=== PATIENT | female | born 1990 | race Caucasian/White ===

== ENCOUNTER 2016-03-18 04:37 | Emergency (ER) | payer BC ==
[~2016-03-18] VITALS: Ht 157.5 cm; Wt 63.6 kg
[2016-03-18 04:40] VITALS: TEMP 98
[2016-03-18] MEDS ORDERED: DESYREL 50MG50 MG PO ×2 (05:03→06:00)
[2016-03-18] MEDS ORDERED: ORTHO-NOVUM 1-1 EACH PO (05:04)
[2016-03-18] MEDS ORDERED: ALDACTONE 25MG25 M1 PO (05:04)
[2016-03-18] MEDS ORDERED: EFFEXOR XR75 MG/CAP PO (05:04)
[2016-03-18 05:30] LABS: BASO % 0.2 % (0.0-2.0); EOS # 0.1 (0.0-0.7); EOS % 1.8 % (0-4.0); GRAN # 2.8 (1.4-6.5); GRAN % 45.1 % (42.2-75.2); HEMATOCRIT 38.2 % (37.0-47.0); HEMOGLOBIN 13.8 g/dl (12.5-16.0); LYMPH % 47.4 % (20.0-51.0); MEAN CELL VOLUME 90 fl (80.0-100.0); MEAN CORPUSCULAR HEMOGLOBIN 33 pg (27.0-31.0); MEAN CORPUSCULAR HGB CONC 36 g/dl (33.0-37.0); MEAN PLATELET VOLUME 8.5 fl (7.4-10.4); MONO # 0.3 (0.1-0.6); MONO % 5.3 % (1.7-9.3); PLATELET COUNT 341 K/mm3 (130-400); RED BLOOD COUNT 4.23 M/mm3 (4.10-5.30); WHITE BLOOD COUNT 6.3 K/mm3 (4.8-10.8)
[2016-03-18 05:41] LABS: ADJUSTED CALCIUM 9.4 mg/dL (8.4-10.2); ALBUMIN 3.8 gm/dL (3.5-5.0); BILIRUBIN,TOTAL 0.7 mg/dL (0.0-1.0); CALCIUM 9.2 mg/dL (8.4-10.2); CREATININE, serum 0.71 mg/dL (0.52-1.25); POTASSIUM 3.5 mmol/L (3.4-5.0); TOTAL PROTEIN 7.1 gm/dL (6.4-8.2)
[2016-03-18 06:01] VITALS: BP 138/93; PULSE 80
== END 2016-03-18 06:10 | disposition home or self-care (01) ==
LOC: COL.ER 04:37
PROVIDERS: Emergency Medicine
DX: F41.9 Anxiety disorder, unspecified (principal); G47.00 Insomnia, unspecified
CPT/HCPCS: J2060

== ENCOUNTER 2016-03-23 11:49 | Emergency (ER) | payer BC ==
[~2016-03-23] VITALS: Ht 157.5 cm; Wt 80.0 kg
[~2016-03-23 11:49] MED LIST: ALDACTONE 25MG25 M1 PO; DESYREL 50MG50 MG PO; EFFEXOR XR75 MG/CAP PO; ORTHO-NOVUM 1-1 EACH PO
[2016-03-23 11:57] VITALS: TEMP 98.1
[2016-03-23 12:43] LABS: BASO % 0.2 % (0.0-2.0); EOS # 0.1 (0.0-0.7); GRAN # 3.5 (1.4-6.5); GRAN % 59.9 % (42.2-75.2); HEMATOCRIT 44.7 % (37.0-47.0); HEMOGLOBIN 15.8 g/dl (12.5-16.0); LYMPH % 33.4 % (20.0-51.0); MEAN CELL VOLUME 92 fl (80.0-100.0); MEAN CORPUSCULAR HEMOGLOBIN 32 pg (27.0-31.0); MEAN CORPUSCULAR HGB CONC 35 g/dl (33.0-37.0); MEAN PLATELET VOLUME 9.1 fl (7.4-10.4); MONO # 0.3 (0.1-0.6); MONO % 5.3 % (1.7-9.3); PLATELET COUNT 342 K/mm3 (130-400); RED BLOOD COUNT 4.87 M/mm3 (4.10-5.30); REDCELL DISTRIBUTION WIDTH-CV 12.1 % (11.5-14.5); WHITE BLOOD COUNT 5.9 K/mm3 (4.8-10.8)
[2016-03-23 12:59] LABS: AMPHETAMINE URINE NEGATIVE; BARBITURATES URINE NEGATIVE; BENZODIAZEPINES URINE NEGATIVE; BUPRENORPHINE URINE NEGATIVE; METHADONE URINE NEGATIVE; OPIATES URINE NEGATIVE; OXYCODONE URINE NEGATIVE; PHENCYCLIDINE URINE NEGATIVE; PROPOXYPHENE URINE NEGATIVE; THC CANNABINOIDS URINE NEGATIVE
[2016-03-23 13:00] LABS: ADJUSTED CALCIUM 9.2 mg/dL (8.4-10.2); ALANINE AMINOTRANSFERASE 42 U/L (9-52); ALBUMIN 4.4 gm/dL (3.5-5.0); ALKALINE PHOSPHATASE 48 U/L (50-136); ANION GAP 11 mmol/L (7-16); BILIRUBIN,TOTAL 1.3 mg/dL (0.0-1.0); BLOOD UREA NITROGEN 11 mg/dL (7-17); CALCIUM 9.5 mg/dL (8.4-10.2); CARBON DIOXIDE 23 mmol/L (22-30); CHLORIDE 102 mmol/L (98-107); CREATININE, serum 0.73 mg/dL (0.52-1.25); GLUCOSE 75 mg/dL (74-106); POTASSIUM 4.1 mmol/L (3.4-5.0); SODIUM 136 mmol/L (137-145); TOTAL PROTEIN 8.3 gm/dL (6.4-8.2)
[2016-03-23 13:02] LABS: ACETAMINOPHEN < 10 ug/mL (10-30); SALICYLATE < 1.0 mg/dL
[2016-03-23 17:21] VITALS: BP 144/78; PULSE 80
== END 2016-03-23 17:23 ==
LOC: COL.ER 11:49
PROVIDERS: Nurse Practitioner
DX: F31.9 Bipolar disorder, unspecified (principal); F41.9 Anxiety disorder, unspecified

== ENCOUNTER 2016-03-29 09:33 | Emergency (ER) | payer BC ==
[~2016-03-29] VITALS: Ht 157.5 cm; Wt 77.3 kg
[2016-03-29 09:43] VITALS: TEMP 98
[2016-03-29] MEDS ORDERED: VIIBRYD20 MG PO (10:13)
[2016-03-29 10:20] LABS: BASO % 0.3 % (0.0-2.0); EOS # 0.1 (0.0-0.7); EOS % 0.9 % (0-4.0); GRAN # 4.1 (1.4-6.5); GRAN % 62.2 % (42.2-75.2); HEMATOCRIT 44.4 % (37.0-47.0); HEMOGLOBIN 15.5 g/dl (12.5-16.0); LYMPH % 30.3 % (20.0-51.0); MEAN CELL VOLUME 93 fl (80.0-100.0); MEAN CORPUSCULAR HEMOGLOBIN 33 pg (27.0-31.0); MEAN CORPUSCULAR HGB CONC 35 g/dl (33.0-37.0); MEAN PLATELET VOLUME 8.7 fl (7.4-10.4); MONO # 0.4 (0.1-0.6); MONO % 5.8 % (1.7-9.3); PLATELET COUNT 347 K/mm3 (130-400); RED BLOOD COUNT 4.76 M/mm3 (4.10-5.30); REDCELL DISTRIBUTION WIDTH-CV 11.9 % (11.5-14.5); WHITE BLOOD COUNT 6.6 K/mm3 (4.8-10.8)
[2016-03-29 10:32] LABS: ADJUSTED CALCIUM 9.6 mg/dL (8.4-10.2); ALBUMIN 3.9 gm/dL (3.5-5.0); BILIRUBIN,TOTAL 0.5 mg/dL (0.0-1.0); CALCIUM 9.5 mg/dL (8.4-10.2); CREATININE, serum 0.74 mg/dL (0.52-1.25); POTASSIUM 3.5 mmol/L (3.4-5.0); TOTAL PROTEIN 7.3 gm/dL (6.4-8.2)
[2016-03-29 12:21] LABS: PH 6 (5-8); URINE APPEARANCE Hazy; URINE BACTERIA Rare /hpf; URINE BILIRUBIN Negative (NEGATIVE); URINE BLOOD 3+ (NEGATIVE); URINE COLOR Yellow; URINE GLUCOSE Negative (NEGATIVE); URINE KETONE Negative (NEGATIVE); URINE RBC >50 /hpf; URINE UROBILINOGEN Negative (NEGATIVE)
[2016-03-29] MEDS ORDERED: ZOFRAN ODT4 MG PO (12:28)
[2016-03-29 12:39] VITALS: BP 132/82; PULSE 80
== END 2016-03-29 12:52 | disposition home or self-care (01) ==
LOC: COL.ER 09:33
PROVIDERS: Family Medicine
DX: R55 Syncope and collapse (principal); F41.9 Anxiety disorder, unspecified
CPT/HCPCS: J2405; J7030

== ENCOUNTER 2016-03-31 09:42 | Emergency (ER) | payer BC ==
[~2016-03-31] VITALS: Ht 157.5 cm; Wt 79.1 kg
[~2016-03-31 09:42] MED LIST changes: +VIIBRYD20 MG PO; +ZOFRAN ODT4 MG PO
[2016-03-31 09:43] VITALS: TEMP 98.3
[2016-03-31 10:29] LABS: BASO % 0.2 % (0.0-2.0); EOS % 0.7 % (0-4.0); GRAN % 65.2 % (42.2-75.2); HEMATOCRIT 42.1 % (37.0-47.0); HEMOGLOBIN 15.1 g/dl (12.5-16.0); LYMPH # 1.7 (1.2-3.4); LYMPH % 27.7 % (20.0-51.0); MEAN CELL VOLUME 90 fl (80.0-100.0); MEAN CORPUSCULAR HEMOGLOBIN 32 pg (27.0-31.0); MEAN CORPUSCULAR HGB CONC 36 g/dl (33.0-37.0); MEAN PLATELET VOLUME 9.2 fl (7.4-10.4); MONO # 0.4 (0.1-0.6); MONO % 5.9 % (1.7-9.3); PLATELET COUNT 307 K/mm3 (130-400); RED BLOOD COUNT 4.67 M/mm3 (4.10-5.30); WHITE BLOOD COUNT 6.1 K/mm3 (4.8-10.8)
[2016-03-31 10:43] LABS: PH 6 (5-8); URINE APPEARANCE Clear; URINE BACTERIA Occasional /hpf; URINE BILIRUBIN Negative (NEGATIVE); URINE BLOOD 2+ (NEGATIVE); URINE COLOR Yellow; URINE GLUCOSE Negative (NEGATIVE); URINE KETONE Negative (NEGATIVE); URINE RBC 0-2 /hpf; URINE UROBILINOGEN Negative (NEGATIVE)
[2016-03-31] MEDS ORDERED: BENTYL 20MG20 MG/TAB PO (13:10)
[2016-03-31] MEDS ORDERED: MACROBID 1100 MG/CAP PO (13:10)
[2016-03-31 13:13] LABS: ALBUMIN 3.4 gm/dL (3.5-5.0); CALCIUM 8.5 mg/dL (8.4-10.2); CREATININE, serum 0.71 mg/dL (0.52-1.25); POTASSIUM 3.4 mmol/L (3.4-5.0); TOTAL PROTEIN 6.5 gm/dL (6.4-8.2)
[2016-03-31 13:23] VITALS: BP 108/86; PULSE 79
== END 2016-03-31 13:23 | disposition home or self-care (01) ==
LOC: COL.ER 09:42
PROVIDERS: Emergency Medicine
DX: R10.31 Right lower quadrant pain (principal); N39.0 Urinary tract infection, site not specified
CPT/HCPCS: J2765; J3010; J7030